=== PATIENT | male | born 1980 | race Caucasian/White ===

== ENCOUNTER 2016-07-15 09:41 | Emergency (ER) | payer OTHER ==
[~2016-07-15] VITALS: Ht 190.5 cm; Wt 167.8 kg
[~2016-07-15 09:41] MED LIST: ALBUTEROL SULF0.5 M1 INH; ALBUTEROL0.09 MG/A2 IH; AMOXICILLIN500 MG PO; AMOXIL500 MG PO; ASMANEX220 MCG INH; AUGMENTIN 875 M1 TAB PO; AVPAK AZITHROM250 M1 PO; BACTRIM DS 8001 TA1 PO; CIPRO500 MG PO; CLARITIN10 MG PO; CLINDAMYCIN150 MG PO; COMPAZINE10 MG PO; CORDROL20 MG PO; DAYPRO600 M1 PO; DELTASONE20 M1 PO; DOLOBID500 MG PO; DUONEB 3 MG/3 ML3 M1 INH; FLAGYL500 MG PO; FLONASE ALLERG9.9 ML NAS; HYDROCODONE BIT1 T11 PO; MEDROL DOSEPAK4 MG PO; MOTRIN800 MG PO; NAPROXEN500 MG PO; NKHM; PEN-VEE K500 MG PO; PENICILLIN VK500 MG PO; PREDNISONE10 MG PO; ROBAXIN500 MG PO; ROBITUSSIN AC 110 ML PO; SEPTRA DS 800 M1 TAB PO; TRAMADOL HCL50 MG PO; TRIMOX500 MG PO; VENTOLIN 02.5 MG/3 M INH; VENTOLIN H0.09 MG/AC INH; VIBRAMYCIN100 MG PO; VICODIN ES 7501 TAB PO; ZITHROMAX250 MG PO
[2016-07-15 10:56] VITALS: BP 118/73
[2016-07-15] MEDS ORDERED: AMOXICILLIN500 M2 PO (12:18)
[2016-07-15] MEDS ORDERED: PREDNISONE20 M1 PO (12:18)
== END 2016-07-15 12:43 | disposition home or self-care (01) ==
LOC: ED 09:41
DX: J01.90 Acute sinusitis, unspecified (principal); J45.909 Unspecified asthma, uncomplicated; J20.9 Acute bronchitis, unspecified; Z79.899 Other long term (current) drug therapy

== ENCOUNTER 2016-11-14 12:29 | Emergency (ER) | payer OTHER ==
[~2016-11-14] VITALS: Ht 190.5 cm; Wt 167.8 kg
[~2016-11-14 12:29] MED LIST changes: +AMOXICILLIN500 M2 PO; +PREDNISONE20 M1 PO
[2016-11-14 12:53] VITALS: BP 136/68
[2016-11-14] MEDS ORDERED: ROBITUSSIN AC 110 ML PO (13:03)
[2016-11-14] MEDS ORDERED: CLARITIN10 MG PO (13:03)
[2016-11-14] MEDS ORDERED: FLONASE ALLERG9.9 ML NAS (13:03)
[2016-11-14] MEDS ORDERED: PREDNISONE10 MG PO (13:03)
[2016-11-14] MEDS ORDERED: DUONEB 3 MG/3 ML3 M1 INH (13:06)
== END 2016-11-14 13:51 | disposition home or self-care (01) ==
LOC: ED 12:29
DX: J45.901 Unspecified asthma with (acute) exacerbation (principal); R03.0 Elevated blood-pressure reading, without diagnosis of hypertension

== ENCOUNTER 2016-11-15 11:31 | Inpatient (IN) | payer OTHER ==
[~2016-11-15] VITALS: Ht 190.5 cm; Wt 176.9 kg
[2016-11-15 11:51] VITALS: BP 134/78
[2016-11-15 12:41] LABS: BASO # 0.1 10*3/uL (0.0-0.1); BASO % 0.5 % (0.0-1.0); EOS # 0.1 10*3/uL (0.0-0.4); EOS % 0.6 % (1.0-4.0); HEMATOCRIT 46.2 % (42.0-52.0); HEMOGLOBIN 15.3 g/dl (14.0-18.0); IG # 0.1 10*3/uL (0.0-0.1); LYMPH # 2.3 10*3/uL (1.3-4.4); LYMPH % 16.9 % (27.0-41.0); MEAN CORPUSCULAR HGB 29.1 pg (27.0-31.0); MEAN CORPUSCULAR HGB CONC 33.1 g/dl (33.0-37.0); MEAN PLATELET VOLUME 10.3 fl (9.6-12.3); MONO # 1.3 10*3/uL (0.1-1.0); MONO % 9.1 % (3.0-9.0); NEUT % 72.3 % (47.0-73.0); PLATELET COUNT AUTOMATED 246 10*3/uL (130-400); RED BLOOD COUNT 5.25 10*6/uL (4.50-5.90); RED CELL DISTRI WIDTH 12.2 % (0-14.5); WHITE BLOOD COUNT 13.8 10*3/uL (4.8-10.8)
[2016-11-15 12:56] LABS: ALBUMIN 3.5 gm/dl (3.1-4.5); ALKALINE PHOSPHATASE 83 U/L (45-117); BILIRUBIN, TOTAL 0.5 mg/dl (0.2-1.0); BUN 11 mg/dl (7-24); CARBON DIOXIDE 25 mmol/L (21-32); CHLORIDE 107 mmol/L (98-107); EST GLOM FILT AFRICAN AMERICAN > 60 ml/min; GLUCOSE 115 mg/dL (65-99); POTASSIUM 3.3 mmol/L (3.5-5.1); SGOT/AST 30 IU/L (3-35); SGPT/ALT 81 U/L (12-78); SODIUM 141 mmol/L (136-145); TOTAL PROTEIN 7.7 gm/dL (6.4-8.2)
[2016-11-15 12:57] LABS: TROPONIN I < 0.015 ng/ml (<0.045)
[2016-11-15 14:00] VITALS: BP 112/71
[2016-11-15 16:00] VITALS: BP 111/79
[2016-11-15 20:00] VITALS: BP 137/94
[2016-11-16] VITALS: BP 144/80
[2016-11-16 04:00] VITALS: BP 116/56
[2016-11-16 06:18] LABS: HEMOGLOBIN A1c 6.5 % (4.8-5.6)
[2016-11-16 06:29] LABS: BUN 10 mg/dl (7-24); CARBON DIOXIDE 24 mmol/L (21-32); CHLORIDE 106 mmol/L (98-107); CHOLESTEROL 167 mg/dL (<200); EST GLOM FILT AFRICAN AMERICAN > 60 ml/min; GLUCOSE 257 mg/dL (65-99); PHOSPHOROUS 2.8 mg/dL (2.5-4.9); POTASSIUM 4.2 mmol/L (3.5-5.1); SODIUM 138 mmol/L (136-145); TRIGLYCERIDES 101 mg/dl (<150); VLDL CHOLESTEROL 20 mg/dL (6-40)
[2016-11-16 06:33] LABS: BASO % 0.1 % (0.0-1.0); HEMATOCRIT 43.7 % (42.0-52.0); HEMOGLOBIN 14.4 g/dl (14.0-18.0); IG # 0.2 10*3/uL (0.0-0.1); LYMPH # 1.2 10*3/uL (1.3-4.4); LYMPH % 7.6 % (27.0-41.0); MEAN CELL VOLUME 89.7 fl (80.0-94.0); MEAN CORPUSCULAR HGB 29.6 pg (27.0-31.0); MEAN PLATELET VOLUME 10.6 fl (9.6-12.3); MONO # 0.5 10*3/uL (0.1-1.0); MONO % 3.5 % (3.0-9.0); NEUT # 13.3 10*3/uL (2.3-7.9); NEUT % 87.5 % (47.0-73.0); PLATELET COUNT AUTOMATED 273 10*3/uL (130-400); RED BLOOD COUNT 4.87 10*6/uL (4.50-5.90); RED CELL DISTRI WIDTH 12.2 % (0-14.5); WHITE BLOOD COUNT 15.2 10*3/uL (4.8-10.8)
[2016-11-16 06:40] LABS: FREE T4 0.83 ng/dl (0.76-1.46); HDL CHOLESTEROL 42 mg/dl (40-60); LDL CHOLESTEROL 105 mg/dL (9-159); THYROID STIM HORMONE (HS) 0.362 uIU/ml (0.358-4.75)
[2016-11-16 06:48] LABS: VITAMIN D, 25-HYDROXY 23.8 ng/mL (30-100)
[2016-11-16 06:50] LABS: FOLIC ACID > 24.00 ng/mL (>5.38)
[2016-11-16 07:09] LABS: PROTHROMBIN TIME 10.5 SECONDS (9.0-12.4)
[2016-11-16 08:00] VITALS: BP 134/62
[2016-11-16 12:00] VITALS: BP 155/83
[2016-11-16 16:00] VITALS: BP 152/92
[2016-11-16 20:00] VITALS: BP 146/80
[2016-11-17] VITALS: BP 147/82
[2016-11-17 06:32] LABS: BASO % 0.1 % (0.0-1.0); HEMATOCRIT 42.2 % (42.0-52.0); HEMOGLOBIN 14.2 g/dl (14.0-18.0); IG # 0.3 10*3/uL (0.0-0.1); LYMPH # 1.7 10*3/uL (1.3-4.4); LYMPH % 7.6 % (27.0-41.0); MEAN CELL VOLUME 89.6 fl (80.0-94.0); MEAN CORPUSCULAR HGB 30.1 pg (27.0-31.0); MEAN CORPUSCULAR HGB CONC 33.6 g/dl (33.0-37.0); MEAN PLATELET VOLUME 10.4 fl (9.6-12.3); MONO % 4.6 % (3.0-9.0); NEUT % 86.4 % (47.0-73.0); PLATELET COUNT AUTOMATED 278 10*3/uL (130-400); RED BLOOD COUNT 4.71 10*6/uL (4.50-5.90); RED CELL DISTRI WIDTH 12.1 % (0-14.5)
[2016-11-17 06:42] LABS: BUN 11 mg/dl (7-24); CARBON DIOXIDE 23 mmol/L (21-32); CHLORIDE 104 mmol/L (98-107); EST GLOM FILT AFRICAN AMERICAN > 60 ml/min; GLUCOSE 334 mg/dL (65-99); POTASSIUM 4.4 mmol/L (3.5-5.1); SODIUM 137 mmol/L (136-145)
[2016-11-17 08:00] VITALS: BP 123/67
[2016-11-17] MEDS ORDERED: VENTOLIN H0.09 MG/AC INH (11:32)
[2016-11-17 12:00] VITALS: BP 149/97
[2016-11-17] MEDS ORDERED: LEVOFLOXACIN500 MG PO (12:50)
== END 2016-11-17 14:42 | disposition home or self-care (01) | DRG 872 ==
LOC: ED 11:31 → 5E 13:38 → EDHOLD 13:38 → 5E 13:47
PROVIDERS: Family Medicine; Internal Medicine; Registered Nurse
DX: A41.9 Sepsis, unspecified organism (principal); J45.901 Unspecified asthma with (acute) exacerbation; I10 Essential (primary) hypertension; E87.6 Hypokalemia; E55.9 Vitamin D deficiency, unspecified; J20.9 Acute bronchitis, unspecified; Z79.51 Long term (current) use of inhaled steroids; Z79.899 Other long term (current) drug therapy; Z82.49 Family history of ischemic heart disease and other diseases of the circulatory system; Z80.3 Family history of malignant neoplasm of breast; Z79.1 Long term (current) use of non-steroidal anti-inflammatories (NSAID)

== ENCOUNTER 2017-03-18 05:29 | Emergency (ER) | payer OTHER ==
[~2017-03-18] VITALS: Ht 190.5 cm; Wt 172.4 kg
[~2017-03-18 05:29] MED LIST changes: +LEVOFLOXACIN500 MG PO
[2017-03-18 05:36] VITALS: BP 130/75
[2017-03-18 05:58] LABS: BASO # 0.1 10*3/uL (0.0-0.1); BASO % 0.4 % (0.0-1.0); EOS % 0.1 % (1.0-4.0); HEMATOCRIT 46.7 % (42.0-52.0); HEMOGLOBIN 15.6 g/dl (14.0-18.0); LYMPH # 1.9 10*3/uL (1.3-4.4); LYMPH % 13.9 % (27.0-41.0); MEAN CELL VOLUME 88.6 fl (80.0-94.0); MEAN CORPUSCULAR HGB 29.6 pg (27.0-31.0); MEAN CORPUSCULAR HGB CONC 33.4 g/dl (33.0-37.0); MEAN PLATELET VOLUME 10.2 fl (9.6-12.3); MONO # 0.7 10*3/uL (0.1-1.0); MONO % 4.9 % (3.0-9.0); NEUT # 10.8 10*3/uL (2.3-7.9); NEUT % 80.1 % (47.0-73.0); PLATELET COUNT AUTOMATED 319 10*3/uL (130-400); RED BLOOD COUNT 5.27 10*6/uL (4.50-5.90); RED CELL DISTRI WIDTH 12.2 % (0-14.5); WHITE BLOOD COUNT 13.4 10*3/uL (4.8-10.8)
[2017-03-18 06:10] LABS: ALBUMIN 3.5 gm/dl (3.1-4.5); ALKALINE PHOSPHATASE 98 U/L (45-117); BUN 14 mg/dl (7-24); CHLORIDE 103 mmol/L (98-107); CREATININE 0.93 mg/dL (0.70-1.30); POTASSIUM 4.5 mmol/L (3.5-5.1); SGOT/AST 39 IU/L (3-35); SGPT/ALT 99 U/L (12-78); SODIUM 138 mmol/L (136-145); TOTAL PROTEIN 7.7 gm/dL (6.4-8.2)
[2017-03-18 06:16] LABS: TROPONIN I < 0.015 ng/ml (<0.045)
== END 2017-03-18 06:42 | disposition home or self-care (01) ==
LOC: ED 05:29
PROVIDERS: Student in an Organized Health Care Education/Training Program
DX: J45.901 Unspecified asthma with (acute) exacerbation (principal); Z98.890 Other specified postprocedural states; Z79.899 Other long term (current) drug therapy

== ENCOUNTER 2017-05-24 12:12 | Emergency (ER) | payer OTHER ==
[~2017-05-24] VITALS: Ht 190.5 cm; Wt 172.4 kg
[2017-05-24 12:21] VITALS: BP 140/71
[2017-05-24] MEDS ORDERED: PROVENTIL HFA6.7 GM INH (12:45)
[2017-05-24] MEDS ORDERED: VIBRAMYCIN100 MG PO (12:50)
[2017-05-24] MEDS ORDERED: PREDNISONE20 M1 PO (12:50)
[2017-05-24] MEDS ORDERED: DUONEB 3 MG/3 ML3 M1 INH (13:16)
== END 2017-05-24 13:21 | disposition home or self-care (01) ==
LOC: ED 12:12
DX: J45.901 Unspecified asthma with (acute) exacerbation (principal); Z98.890 Other specified postprocedural states; Z79.899 Other long term (current) drug therapy

== ENCOUNTER 2017-07-04 13:10 | Emergency (ER) | payer OTHER ==
[~2017-07-04] VITALS: Ht 190.5 cm; Wt 176.9 kg
[~2017-07-04 13:10] MED LIST changes: +PROVENTIL HFA6.7 GM INH
[2017-07-04] MEDS ORDERED: INHALER (13:24)
[2017-07-04 13:30] VITALS: BP 138/62
[2017-07-04] MEDS ORDERED: DUONEB 3 MG/3 ML3 M1 INH (14:30)
[2017-07-04] MEDS ORDERED: PREDNISONE50 MG PO (14:30)
== END 2017-07-04 14:36 | disposition home or self-care (01) ==
LOC: ED
DX: J45.901 Unspecified asthma with (acute) exacerbation (principal); E66.01 Morbid (severe) obesity due to excess calories; Z68.42 Body mass index [BMI] 45.0-49.9, adult; Z98.890 Other specified postprocedural states; Z79.899 Other long term (current) drug therapy

== ENCOUNTER 2017-07-10 08:45 | Inpatient (IN) | payer OTHER ==
[~2017-07-10] VITALS: Ht 190.5 cm; Wt 185.1 kg
[2017-07-10] VITALS (9 sets, daily range): BP systolic 98–138; BP diastolic 50–84
--- NOTE | ~2017-07-10 | PR ---
[place], [place] PROGRESS NOTE NAME: EMILE LACKEY [facility] #: [id number] UNIT #: [id number] ROOM: 512 DOCTOR: EDILBERTO SHUKLA MD BIRTHDATE: [birth year] DOS: 07/11/2017 SUBJECTIVE: The patient is doing well. Heart rate is better controlled. OBJECTIVE: GENERAL APPEARANCE: The patient is alert and oriented x 3, in no visible distress. Morbid obesity. VITAL SIGNS: Blood pressure 143/66, heart rate of 63 beats per minute, breathing normally, afebrile. HEENT AND NECK: Exam within normal limits. CARDIOVASCULAR SYSTEM: Irregular heart rate. LUNGS: Clear to auscultation. ABDOMEN: Soft, nontender. No obvious organomegaly. Bowel sounds are present. EXTREMITIES: Without significant cyanosis or edema. IMPRESSION: 1. The patient with atrial fibrillation with rapid ventricular response, heart rates improved with treatment with Cardizem. Case was discussed with Dr. Pitt this morning and he is planning to take the patient for cardioversion tomorrow to put him back into normal sinus rhythm. 2. History of asthmatoid wheezing, presently asymptomatic. 3. Leukocytosis with white cell count elevated secondary to use of corticosteroids recently. EDILBERTO SHUKLA MD CM:PNTRANS [id number] EDILBERTO SHUKLA MD 07/11/17 1433 interface
--- NOTE | ~2017-07-10 | PROC NOTE ---
[place], [place] PROCEDURE NOTE NAME: EMILE LACKEY [facility] #: [id number] UNIT #: [id number] ROOM: 512 DOCTOR: MITCH LYON,ANUEL BIRTHDATE: [birth year] DOS: 07/12/2017 PROCEDURE: Synchronized cardioversion of atrial fibrillation. The patient was consented. The patient was sedated by anesthesia: The patient underwent JAM to ____ left atrial appendage thrombus. The patient was cardioverted subsequently with 200 joules of synchronized electricity. The patient was converted to sinus and the procedure was without complications. ANUEL MEYER MD CM:PROCNOTE:PROCEDURE NOTE [id number] ANUEL MEYER MD
--- NOTE | ~2017-07-10 | WRIGHTHP ---
[place], [place] PATIENT HISTORY AND PHYSICAL EXAM NAME: EMILE LACKEY [facility] #: [id number] UNIT #: [id number] ROOM: 512 DOCTOR: EDILBERTO SHUKLA MD BIRTHDATE: [birth year] DOS: 07/10/2017 HISTORY OF PRESENT ILLNESS: The patient is a 36-year-old gentleman with a past medical history of morbid obesity and bronchial asthma, who presented to the Emergency Department with complaints of palpitations and irregular heart rate. In the Emergency Department, he was found to have atrial fibrillation with rapid ventricular response and morbid obesity. The patient was on a tapering down dose of prednisone. The patient was given oral Cardizem in the Emergency Department and heart rate improved. The patient has been seen by roller structural mill after admission. No complaints of any chest pain, no shortness of breath, no other GI or urinary symptoms. REVIEW OF SYSTEMS: LUNGS: Recent wheezing and shortness of breath, which were treated. He has bronchial asthma. CARDIOVASCULAR: No chest pain, but he did have palpitations recently. GASTROINTESTINAL: No nausea, vomiting, diarrhea or constipation. FAMILY HISTORY: Noncontributory. SOCIAL HISTORY: , with children. Denies any alcohol or drug abuse. HOME MEDICATIONS: The patient was taking Ventolin as needed inhaler, prednisone, doxycycline, Levaquin, Flonase, loratadine and DuoNebs. ALLERGIES: No known drug allergies. PHYSICAL EXAMINATION: GENERAL: Alert and oriented x 3, in no visible distress, morbidly obese. VITAL SIGNS: Blood pressure 101/50, heart rate of 100 beats per minute, breathing 16 times per minute and temperature 98.2 degrees Fahrenheit. GENERAL APPEARANCE: The patient is alert and oriented x 3, in no visible distress. HEENT AND NECK: Extraocular movements are intact. Sclerae are anicteric. Oral mucosa is moist and clean. No obvious facial weakness. Neck is supple without any lymphadenopathy. No thyromegaly. No JVD. No carotid arterial bruits. LUNGS: Clear to auscultation. No wheezing. No rhonchi. CARDIOVASCULAR SYSTEM: Irregularly irregular in rate and rhythm. S1 and S2 audible. ABDOMEN: Soft, nontender. No obvious organomegaly. Bowel sounds are present. No obvious herniation. EXTREMITIES: Without significant cyanosis or edema. Warm to touch. CENTRAL NERVOUS SYSTEM: Alert and oriented x 3. Cranial nerves II-XII are intact. Speech is normal. The patient is able to move all extremities. Normal muscle strength. Deep tendon reflexes are equal on both sides. Plantars were downgoing. LABORATORY DATA: Cardiac enzymes have been negative so far. Chest x-ray [place], [place] PATIENT HISTORY AND PHYSICAL EXAM NAME: EMILE LACKEY [facility] #: [id number] UNIT #: [id number] ROOM: [facility] DOCTOR: EDILBERTO SHUKLA MD BIRTHDATE: [birth year] without any acute abnormality. Normal serum electrolytes. Blood sugar 154. Normal TSH. IMPRESSION: 1. Acute episode of atrial fibrillation with rapid ventricular response with improved heart rates with Cardizem. The patient is being monitored closely on IMC. The patient's cardiac enzymes have been negative. 2. History of asthmatoid wheezing, which was improved with recent treatment with antibiotics and corticosteroids. Some elevation of blood sugar to 154, which will need to be monitored. The patient may be becoming a diabetic, but he has no previous history of diabetes mellitus. 3. Leukocytosis with white cell count of 19,000, apparently secondary to recent corticosteroids, which he was given in the form of prednisone. The patient likely to have sleep apnea and he was recommended to follow up with a automotive service consultant. EDILBERTO SHUKLA MD CM:HISPHYS:PATIENT HISTORY AND PHYSICAL EXAMINATION 1815 03 EDILBERTO SHUKLA MD 07/10/17 2002 interface
--- NOTE | ~2017-07-10 | DS ---
[place], [place] DISCHARGE SUMMARY NAME: EMILE LACKEY [facility] #: [id number] UNIT #: [id number] ROOM: 512 DOCTOR: EDILBERTO SHUKAL MD BIRTHDATE: [birth year] DOS: 07/12/2017 DISCHARGE DIAGNOSES: 1. Acute onset of atrial fibrillation with rapid ventricular response. The patient is status post cardioversion. 2. Morbid obesity. 3. History of asthmatoid wheezing, presently asymptomatic. 4. Corticosteroid-induced leukocytosis. HOSPITAL COURSE: 1. The patient presented to the Emergency Department at [facility] with palpitations and was found to have atrial fibrillation with rapid ventricular response. The patient was given Cardizem and heart rate improved. The patient was also anticoagulated with Xarelto and finally taken for cardioversion, which was successful and the patient is back in normal sinus rhythm. Echocardiogram showed normal left ventricular ejection fraction with mild concentric LVH, 50% ejection fraction. 2. Morbid obesity. The patient worked with dietary. 3. Asthmatoid wheezing, presently asymptomatic. No shortness of breath. 4. Corticosteroid-induced leukocytosis, because the patient took prednisone recently. JAM echocardiogram results as mentioned above. LABORATORY DATA: Normal serum electrolytes. Blood sugar 182. The patient is a prediabetic and needs to be worked up for diabetes mellitus type 2. Cardiac enzymes were negative. DISCHARGE MANAGEMENT: Cardizem CD 240 mg a day, Xarelto 20 mg a day, DuoNeb at home p.r.n. for shortness of breath. EDILBERTO SHUKLA MD CM:DISCHARG [id number] EDILBERTO SHUKLA MD 07/12/17 2237 interface
[~2017-07-10 08:45] MED LIST changes: +INHALER; +PREDNISONE50 MG PO
[2017-07-10 09:17] LABS: BASO # 0.1 10*3/uL (0.0-0.1); BASO % 0.7 % (0.0-1.0); EOS # 0.1 10*3/uL (0.0-0.4); EOS % 0.7 % (1.0-4.0); HEMATOCRIT 46.6 % (42.0-52.0); HEMOGLOBIN 15.5 g/dl (14.0-18.0); LYMPH # 4.4 10*3/uL (1.3-4.4); LYMPH % 23.3 % (27.0-41.0); MEAN CELL VOLUME 88.6 fl (80.0-94.0); MEAN CORPUSCULAR HGB 29.5 pg (27.0-31.0); MEAN CORPUSCULAR HGB CONC 33.3 g/dl (33.0-37.0); MEAN PLATELET VOLUME 10.3 fl (9.6-12.3); MONO # 1.2 10*3/uL (0.1-1.0); MONO % 6.3 % (3.0-9.0); NEUT % 68.5 % (47.0-73.0); PLATELET COUNT AUTOMATED 282 10*3/uL (130-400); RED BLOOD COUNT 5.26 10*6/uL (4.50-5.90); RED CELL DISTRI WIDTH 12.5 % (0-14.5)
[2017-07-10 09:28] LABS: ACT PARTIAL THROMBO TIME 21.1 SECONDS (20.8-31.5)
[2017-07-10 09:36] LABS: ALBUMIN 3.4 gm/dl (3.1-4.5); ALKALINE PHOSPHATASE 92 U/L (45-117); BUN 14 mg/dl (7-24); CHLORIDE 104 mmol/L (98-107); CREATININE 0.79 mg/dL (0.70-1.30); POTASSIUM 3.9 mmol/L (3.5-5.1); SGOT/AST 26 IU/L (3-35); SGPT/ALT 81 U/L (12-78); SODIUM 138 mmol/L (136-145); TOTAL PROTEIN 6.9 gm/dL (6.4-8.2)
[2017-07-10 09:42] LABS: TROPONIN I < 0.015 ng/ml (<0.045)
[2017-07-11] VITALS: BP 120/95
[2017-07-11 04:00] VITALS: BP 118/64
[2017-07-11 06:21] LABS: BASO # 0.1 10*3/uL (0.0-0.1); BASO % 0.8 % (0.0-1.0); EOS # 0.3 10*3/uL (0.0-0.4); EOS % 2.1 % (1.0-4.0); HEMOGLOBIN 15.8 g/dl (14.0-18.0); LYMPH # 3.9 10*3/uL (1.3-4.4); LYMPH % 27.4 % (27.0-41.0); MEAN CELL VOLUME 89.9 fl (80.0-94.0); MEAN CORPUSCULAR HGB 30.2 pg (27.0-31.0); MEAN CORPUSCULAR HGB CONC 33.6 g/dl (33.0-37.0); MEAN PLATELET VOLUME 10.3 fl (9.6-12.3); MONO # 0.9 10*3/uL (0.1-1.0); MONO % 6.6 % (3.0-9.0); NEUT # 8.8 10*3/uL (2.3-7.9); NEUT % 62.7 % (47.0-73.0); PLATELET COUNT AUTOMATED 249 10*3/uL (130-400); RED BLOOD COUNT 5.23 10*6/uL (4.50-5.90); RED CELL DISTRI WIDTH 12.6 % (0-14.5); WHITE BLOOD COUNT 14.1 10*3/uL (4.8-10.8)
[2017-07-11 06:34] LABS: BUN 13 mg/dl (7-24); CHLORIDE 100 mmol/L (98-107); CREATININE 0.77 mg/dL (0.70-1.30); POTASSIUM 3.9 mmol/L (3.5-5.1); SODIUM 136 mmol/L (136-145)
[2017-07-11 08:00] VITALS: BP 92/64
[2017-07-11 12:00] VITALS: BP 143/66
[2017-07-11 16:00] VITALS: BP 95/53
[2017-07-11 20:00] VITALS: BP 104/65
[2017-07-12] VITALS (8 sets, daily range): BP systolic 105–132; BP diastolic 55–71
[2017-07-12] MEDS ORDERED: XARE20MG PO (18:12)
[2017-07-12] MEDS ORDERED: DILTIAZEM CD240 MG PO (18:12)
== END 2017-07-12 19:43 | disposition home or self-care (01) | DRG 309 ==
LOC: ED 08:45 → 5E 09:58 → EDHOLD 09:58 → 5E 10:09
PROVIDERS: Emergency Medicine; Internal Medicine
PROC: 5A2204Z Restoration of Cardiac Rhythm, Single (ICD-10-PCS; principal; 2017-07-12)
DX: I48.91 Unspecified atrial fibrillation (principal); Z68.43 Body mass index [BMI] 50.0-59.9, adult; E66.01 Morbid (severe) obesity due to excess calories; D72.829 Elevated white blood cell count, unspecified; G47.33 Obstructive sleep apnea (adult) (pediatric); J45.909 Unspecified asthma, uncomplicated; T38.0X5A Adverse effect of glucocorticoids and synthetic analogues, initial encounter; Z79.899 Other long term (current) drug therapy; Z82.49 Family history of ischemic heart disease and other diseases of the circulatory system; Z85.3 Personal history of malignant neoplasm of breast; Y92.89 Other specified places as the place of occurrence of the external cause

== ENCOUNTER 2017-11-09 05:36 | Emergency (ER) | payer OTHER ==
[~2017-11-09] VITALS: Ht 190.5 cm; Wt 166.9 kg
[~2017-11-09 05:36] MED LIST changes: +DILTIAZEM CD240 MG PO; +XARE20MG PO
[2017-11-09 05:38] VITALS: BP 146/83
[2017-11-09] MEDS ORDERED: PREDNISONE50 MG PO (06:06)
[2017-11-09] MEDS ORDERED: VENTOLIN 02.5 MG/3 M INH (06:36)
== END 2017-11-09 06:46 | disposition home or self-care (01) ==
LOC: ED 05:36
DX: J45.909 Unspecified asthma, uncomplicated (principal); E66.01 Morbid (severe) obesity due to excess calories; Z68.42 Body mass index [BMI] 45.0-49.9, adult; Z98.890 Other specified postprocedural states; Z79.899 Other long term (current) drug therapy

== ENCOUNTER 2018-12-31 12:44 | Emergency (ER) | payer OTHER ==
[~2018-12-31] VITALS: Wt 124.7 kg
[~2018-12-31 12:44] MED LIST changes: +TESSALON PERLE100 MG PO
[2018-12-31] MEDS ORDERED: MEDROL DOSEPAK4 MG PO (14:09)
[2018-12-31] MEDS ORDERED: ROBAXIN500 M1 PO (14:09)
== END 2018-12-31 14:24 | disposition home or self-care (01) ==
LOC: ED 12:44
DX: S16.1XXA Strain of muscle, fascia and tendon at neck level, initial encounter (principal); M25.511 Pain in right shoulder; F17.200 Nicotine dependence, unspecified, uncomplicated; Z79.899 Other long term (current) drug therapy; X58.XXXA Exposure to other specified factors, initial encounter; Y93.89 Activity, other specified; Y92.89 Other specified places as the place of occurrence of the external cause; Y99.8 Other external cause status

== ENCOUNTER 2019-01-01 16:34 | Emergency (ER) | payer OTHER ==
[~2019-01-01] VITALS: Ht 190.5 cm; Wt 167.8 kg
[~2019-01-01 16:34] MED LIST changes: +ROBAXIN500 M1 PO
[2019-01-01 16:36] VITALS: BP 123/84
[2019-01-02] MEDS ORDERED: CYCLOBENZAPRINE5 M3 PO (22:36)
== END 2019-01-01 18:27 | disposition home or self-care (01) ==
LOC: ED 16:34
DX: M54.12 Radiculopathy, cervical region (principal)

== ENCOUNTER 2019-01-02 21:01 | Emergency (ER) | payer OTHER ==
[~2019-01-02] VITALS: Ht 190.5 cm; Wt 167.8 kg
[2019-01-02 21:04] VITALS: BP 114/75
[2019-01-02] MEDS ORDERED: CYCLOBENZAPRINE5 M3 PO (22:36)
== END 2019-01-02 22:45 | disposition home or self-care (01) ==
LOC: ED 21:01
DX: M54.12 Radiculopathy, cervical region (principal); M25.511 Pain in right shoulder

== ENCOUNTER 2019-02-08 09:11 | Emergency (ER) | payer OTHER ==
[~2019-02-08] VITALS: Wt 163.3 kg
[~2019-02-08 09:11] MED LIST changes: +CYCLOBENZAPRINE5 M3 PO
[2019-02-08 09:14] VITALS: BP 103/53
[2019-02-08] MEDS ORDERED: PREDNISONE50 MG PO (11:35)
[2019-02-08] MEDS ORDERED: TESSALON PERLE100 M1 PO (11:35)
[2019-02-08] MEDS ORDERED: AMOXICILLIN500 M2 PO (11:35)
== END 2019-02-08 11:38 | disposition home or self-care (01) ==
LOC: ED 09:11
DX: J20.9 Acute bronchitis, unspecified (principal); J45.909 Unspecified asthma, uncomplicated; I48.91 Unspecified atrial fibrillation; G47.30 Sleep apnea, unspecified

== ENCOUNTER → 2019-11-26 | Outpatient (CLI) | payer OTHER ==
[~2019-11-26] MED LIST changes: +TESSALON PERLE100 M1 PO
== END | disposition home or self-care (01) ==
LOC: US 13:49
DX: N43.3 Hydrocele, unspecified (principal)

== ENCOUNTER → 2020-01-21 | Outpatient (CLI) | payer OTHER | END | disposition home or self-care (01) | LOC: RAD 12:34 | PROVIDERS: ATTEND Chiropractor Orthopedic | DX: S43.92XA Sprain of unspecified parts of left shoulder girdle, initial encounter (principal); X58.XXXA Exposure to other specified factors, initial encounter; Y93.89 Activity, other specified; Y92.89 Other specified places as the place of occurrence of the external cause; Y99.8 Other external cause status ==

== ENCOUNTER → 2021-10-01 | Outpatient (CLI) | payer OTHER ==
[2021-10-01 11:45] LABS: BASO # 0.1 10*3/uL (0.0-0.1); BASO % 0.8 % (0.0-1.0); EOS # 0.2 10*3/uL (0.0-0.4); EOS % 2.2 % (1.0-4.0); HEMATOCRIT 43.7 % (42.0-52.0); LYMPH # 2.3 10*3/uL (1.3-4.4); LYMPH % 23.3 % (27.0-41.0); MEAN CELL VOLUME 89.2 fl (80.0-94.0); MEAN CORPUSCULAR HGB CONC 33.6 g/dl (33.0-37.0); MEAN PLATELET VOLUME 9.6 fl (9.6-12.3); MONO # 0.8 10*3/uL (0.1-1.0); MONO % 7.7 % (3.0-9.0); NEUT # 6.5 10*3/uL (2.3-7.9); NEUT % 65.7 % (47.0-73.0); PLATELET COUNT AUTOMATED 269 10*3/uL (130-400); RED CELL DISTRI WIDTH 12.1 % (0-14.5); WHITE BLOOD COUNT 9.9 10*3/uL (4.8-10.8)
[2021-10-01 12:03] LABS: BUN 12 mg/dl (7-24); CHLORIDE 108 mmol/L (98-107); POTASSIUM 3.8 mmol/L (3.5-5.1); SGOT/AST 38 IU/L (3-35); SGPT/ALT 81 U/L (12-78); SODIUM 139 mmol/L (136-145); TRIGLYCERIDES 178 mg/dl (<150)
[2021-10-01 12:04] LABS: ALKALINE PHOSPHATASE 83 U/L (45-117); PREALBUMIN 28 mg/dl (20-40); TOTAL PROTEIN 7.4 gm/dL (6.4-8.2)
== END | disposition home or self-care (01) ==
LOC: LAB 11:19
PROVIDERS: ATTEND Student in an Organized Health Care Education/Training Program
DX: E66.01 Morbid (severe) obesity due to excess calories (principal)

== ENCOUNTER → 2021-12-21 | Outpatient (CLI) | payer OTHER ==
[~2021-12-21] MED LIST changes: +ASPIRIN ADULT L81 M1 PO
== END | disposition home or self-care (01) ==
LOC: CARD 00:19
PROVIDERS: ATTEND Internal Medicine Cardiovascular Disease
DX: Z01.818 Encounter for other preprocedural examination (principal); I10 Essential (primary) hypertension

== ENCOUNTER → 2022-02-09 | Outpatient (CLI) | payer OTHER ==
[2022-02-16 14:07] LABS: COTININE <1.0 ng/mL (.); NICOTINE <1.0 ng/mL (.)
== END | disposition home or self-care (01) ==
LOC: LAB 10:59
PROVIDERS: ATTEND Student in an Organized Health Care Education/Training Program
DX: Z13.89 Encounter for screening for other disorder (principal); Z02.6 Encounter for examination for insurance purposes; Z78.9 Other specified health status

== ENCOUNTER → 2022-05-03 | Outpatient (CLI) | payer OTHER ==
[2022-05-03 11:11] LABS: BASO # 0.1 10*3/uL (0.0-0.1); EOS # 0.2 10*3/uL (0.0-0.4); EOS % 2.3 % (1.0-4.0); HEMATOCRIT 44.5 % (42.0-52.0); LYMPH % 24.4 % (27.0-41.0); MEAN CELL VOLUME 89.4 fl (80.0-94.0); MEAN CORPUSCULAR HGB 30.3 pg (27.0-31.0); MEAN CORPUSCULAR HGB CONC 33.9 g/dl (33.0-37.0); MEAN PLATELET VOLUME 9.6 fl (9.6-12.3); MONO # 0.7 10*3/uL (0.1-1.0); MONO % 7.8 % (3.0-9.0); NEUT # 5.4 10*3/uL (2.3-7.9); NEUT % 64.3 % (47.0-73.0); PLATELET COUNT AUTOMATED 271 10*3/uL (130-400); RED BLOOD COUNT 4.98 10*6/uL (4.50-5.90); RED CELL DISTRI WIDTH 11.9 % (0-14.5); WHITE BLOOD COUNT 8.3 10*3/uL (4.8-10.8)
[2022-05-03 11:33] LABS: ALKALINE PHOSPHATASE 76 U/L (46-116); BUN 14 mg/dl (9-23); CHLORIDE 102 mmol/L (98-107); POTASSIUM 3.8 mmol/L (3.4-5.1); SGPT/ALT 61 U/L (10-49); TOTAL PROTEIN 7.7 gm/dL (6.0-8.0)
== END | disposition home or self-care (01) ==
LOC: LAB 10:50
PROVIDERS: ATTEND Student in an Organized Health Care Education/Training Program
DX: K91.2 Postsurgical malabsorption, not elsewhere classified (principal)

== ENCOUNTER → 2022-07-22 | Outpatient (CLI) | payer OTHER ==
[2022-07-22 12:28] LABS: BASO # 0.1 10*3/uL (0.0-0.1); BASO % 0.9 % (0.0-1.0); EOS # 0.1 10*3/uL (0.0-0.4); EOS % 1.6 % (1.0-4.0); HEMATOCRIT 45.7 % (42.0-52.0); LYMPH % 29.2 % (27.0-41.0); MEAN CORPUSCULAR HGB 30.3 pg (27.0-31.0); MEAN CORPUSCULAR HGB CONC 33.7 g/dl (33.0-37.0); MEAN PLATELET VOLUME 9.9 fl (9.6-12.3); MONO # 0.6 10*3/uL (0.1-1.0); MONO % 8.8 % (3.0-9.0); NEUT % 59.5 % (47.0-73.0); PLATELET COUNT AUTOMATED 261 10*3/uL (130-400); RED BLOOD COUNT 5.08 10*6/uL (4.50-5.90); RED CELL DISTRI WIDTH 12.1 % (0-14.5); WHITE BLOOD COUNT 6.8 10*3/uL (4.8-10.8)
[2022-07-22 12:46] LABS: ALKALINE PHOSPHATASE 89 U/L (46-116); BUN 9 mg/dl (9-23); CHLORIDE 104 mmol/L (98-107); POTASSIUM 4.5 mmol/L (3.4-5.1); SGPT/ALT 18 U/L (10-49)
== END | disposition home or self-care (01) ==
LOC: LAB 11:51
PROVIDERS: ATTEND Physician Assistant
DX: K91.2 Postsurgical malabsorption, not elsewhere classified (principal)

== ENCOUNTER 2023-04-23 14:13 | Emergency (ER) | payer OTHER ==
[~2023-04-23] VITALS: Ht 187.9 cm; Wt 140.6 kg
[2023-04-23 15:00] VITALS: BP 134/72
[2023-04-23] MEDS ORDERED: METOPROLOL SUCC50 M1 PO (15:01)
[2023-04-23] MEDS ORDERED: PRILOSEC20 M1 PO (15:02)
[2023-04-23] MEDS ORDERED: PREDNISONE20 M1 PO (16:12)
[2023-04-23] MEDS ORDERED: AVPAK AZITHROM250 M1 PO (16:12)
== END 2023-04-23 16:20 | disposition home or self-care (01) ==
LOC: ED 14:13
DX: J45.909 Unspecified asthma, uncomplicated (principal); I48.91 Unspecified atrial fibrillation; E87.6 Hypokalemia; Z98.890 Other specified postprocedural states

== ENCOUNTER 2024-05-19 08:01 | Emergency (ER) | payer OTHER ==
[~2024-05-19] VITALS: Ht 187.9 cm; Wt 140.6 kg
[~2024-05-19 08:01] MED LIST changes: +METOPROLOL SUCC50 M1 PO; +PRILOSEC20 M1 PO
[2024-05-19 08:10] VITALS: BP 131/53
[2024-05-19] MEDS ORDERED: Amoxicillin/Clavulanate Pota 875 MG TAB PO ONE (08:20)
[2024-05-19] MEDS ORDERED: AMOX-CLAV 875-1 EACH PO (08:21)
== END 2024-05-19 08:47 | disposition home or self-care (01) ==
LOC: ED 08:01
DX: J02.0 Streptococcal pharyngitis (principal); R59.0 Localized enlarged lymph nodes; Z79.82 Long term (current) use of aspirin; Z79.899 Other long term (current) drug therapy; Z98.890 Other specified postprocedural states

== ENCOUNTER 2025-04-05 10:09 | Emergency (ER) | payer OTHER ==
[~2025-04-05] VITALS: Wt 147.4 kg
[~2025-04-05 10:09] MED LIST changes: +AMOX-CLAV 875-1 EACH PO
[2025-04-05 10:17] VITALS: BP 147/72
[2025-04-05] MEDS ORDERED: Albuterol Sulf/Ipratropium 3 ML VIAL NEB ONE (10:30)
[2025-04-05] MEDS ORDERED: OMNICEF300 MG PO (11:50)
[2025-04-05] MEDS ORDERED: VIBRAMYCIN100 MG PO (11:50)
== END 2025-04-05 11:57 | disposition home or self-care (01) ==
LOC: ED 10:09
DX: J18.9 Pneumonia, unspecified organism (principal); I48.91 Unspecified atrial fibrillation; J45.909 Unspecified asthma, uncomplicated; G47.30 Sleep apnea, unspecified; Z98.890 Other specified postprocedural states